=== PATIENT | female | born 1945 | race Caucasian/White ===

== ENCOUNTER 2018-09-16 10:35 | Inpatient (IN) | payer MEDICARE, OTHER ==
[~2018-09-16] VITALS: Ht 167.6 cm; Wt 72.2 kg
--- NOTE | ~2018-09-16 | MORECARE ---
CASE MANAGEMENT DISCHARGE SUMMARY PATIENT: OLIMPIA MISTRY S UNIT: [id number] ADM DATE: 09/16/18 AGE: 73 : 47 SEX: F ROOM/BED: D.1519 AUTHOR: FRANKIE AGUDELO PHYSICIAN: REFERRING PHYSICIAN: EDDIE DURHAM MD DATE OF SERVICE: 09/19/18 Discharge Plan Patient Name: OLIMPIA MISTRY [facility] [facility] 1945 Planned Disposition: Home Anticipated Discharge Date: 09/18/18 Discharge Date: 09/18/2018 Expected LOS: 2 Initial Reviewer: [email or web address] Initial Review Date: 09/19/2018 Generated: 09/19/18 11:05 am Patient Name: OLIMPIA MISTRY Page [id number] at 1005 All edits/amendments must be made on the electronic document DICTATION DATE: 09/19/18 1004 US MARKETING DIRECTOR: KIRSTEN 09/19/18 1004 RPT#: [id number] DC DATE:09/18/18 STATUS: DIS IN [address] [place] [id number] END OF REPORT
[2018-09-16] MEDS ORDERED: ZOFRAN ODT4 MG/UDTAB PO (10:47)
[2018-09-16] MEDS ORDERED: VITAMIN D2000 UNIT PO (10:47)
[2018-09-16] MEDS ORDERED: COZAAR100 MG PO (10:48)
[2018-09-16] MEDS ORDERED: CIPRO500 MG PO (10:48)
[2018-09-16] MEDS ORDERED: PEPCID40 MG PO (10:48)
[2018-09-16] MEDS ORDERED: FLAGYL500 MG PO (10:49)
[2018-09-16 11:22] LABS: BASOPHILS 0.2 % (0-2); EOSINOPHILS 1.8 % (0-7); HEMATOCRIT 39.3 % (36.0-48.0); HEMOGLOBIN 13.3 g/dL (12-16); IMMATURE GRANULOCYTES 0.2 % (0-5); LYMPHOCYTES 29.1 % (15-50); MCH 29.2 pg (26.0-34.0); MCHC 33.8 g/dL (31.0-37.0); MCV 86.2 fL (80.0-100.0); MEAN PLATELET VOLUME 10.3 fL (7.4-10.4); MONOCYTES 7.8 % (2-11); NEUTROPHILS 60.9 % (40-80); PLATELET COUNT 245 10x3/uL (130-400); RBC 4.56 10x6/uL (4.00-5.40); RDW 13.2 % (11.5-14.5); WBC 6.2 10x3/uL (4.8-10.8)
[2018-09-16 11:23] LABS: APPEARANCE CLEAR (CLEAR); BILIRUBIN NEGATIVE (NEGATIVE); COLOR DK YELLOW (YELLOW); GLUCOSE NEGATIVE (NEGATIVE); KETONE NEGATIVE (NEGATIVE); NITRITE NEGATIVE (NEGATIVE); PROTEIN TRACE mg/dL (NEGATIVE); UROBILINOGEN NORMAL (NORMAL)
[2018-09-16 11:30] LABS: BACTERIA FEW /hpf (NONE SEEN); EPITHELIAL CELLS RARE /hpf (0-5); HYALINE CAST RARE /lpf (NONE SEEN); RED CELLS - URINE 0-5 /hpf (0-5); WHITE CELLS - URINE RARE /hpf (0-5)
[2018-09-16 11:46] LABS: ALBUMIN 3.8 g/dL (3.4-5.0); ALKALINE PHOSPHATASE 67 U/L (46-116); ALT (SGPT) 31 U/L (10-68); BILIRUBIN - TOTAL 0.56 mg/dL (0.2-1.3); CALC OSMOLALITY 279 mosm/kg (275-300); CARBON DIOXIDE 25.3 mmol/L (21.0-32.0); CHLORIDE - SERUM 106 mmol/L (98-107); CREATININE - SERUM 0.9 mg/dL (0.6-1.3); GLUCOSE 108 mg/dL (74-106); POTASSIUM - SERUM 3.8 mmol/L (3.5-5.1); PROTEIN - SERUM 7.6 g/dL (6.4-8.2); SODIUM 140 mmol/L (136-145); UREA NITROGEN 13 mg/dL (7-18); eGFR NON AFRICAN AMERICAN 65 mL/min (90-120)
[2018-09-16 11:49] LABS: AMYLASE - SERUM 29 U/L (25-115); LIPASE 184 U/L (73-393)
[2018-09-16 11:51] LABS: TROPONIN-I < 0.017 ng/mL (0.000-0.060)
[2018-09-16 15:14] VITALS: BP 145/75; BMI 27.5
[2018-09-16 18:31] LABS: CKMB 0.6 U/L (0.0-3.6); CREATINE KINASE 68 UL (21-215)
[2018-09-16 18:33] LABS: TROPONIN-I < 0.017 ng/mL (0.000-0.060)
[2018-09-16 19:45] VITALS: BP 160/52
[2018-09-16 23:11] LABS: CKMB 0.9 U/L (0.0-3.6); CREATINE KINASE 85 UL (21-215)
[2018-09-16 23:19] LABS: TROPONIN-I < 0.017 ng/mL (0.000-0.060)
[2018-09-16 23:30] VITALS: BP 143/67
[2018-09-17 03:50] VITALS: BP 127/71
[2018-09-17 06:30] LABS: CKMB 0.9 U/L (0.0-3.6); CREATINE KINASE 87 UL (21-215); TROPONIN-I < 0.017 ng/mL (0.000-0.060)
[2018-09-17 07:50] VITALS: BP 123/61
[2018-09-17 11:09] VITALS: BP 116/66
[2018-09-17 13:07] VITALS: Ht 167.6 cm; Wt 72.2 kg
[2018-09-17 15:11] VITALS: BP 121/63
[2018-09-17 19:45] VITALS: BP 142/75
[2018-09-17 23:50] VITALS: BP 152/75
[2018-09-18 03:45] VITALS: BP 161/77
[2018-09-18 08:13] VITALS: BP 140/79
[2018-09-18] MEDS ORDERED: LEVAQUIN750 MG PO (10:20)
[2018-09-18] MEDS ORDERED: FLAGYL500 MG PO (10:21)
[2018-09-18 11:28] VITALS: BP 140/87
[2018-09-18] MEDS ORDERED: OMEPRAZOLE20 M1 PO (12:27)
[2018-09-18] MEDS ORDERED: COLACE100 MG PO (12:27)
[2018-09-18] MEDS ORDERED: PEPCID40 MG PO (12:27)
[2018-09-18] MEDS ORDERED: MIRALAX17 GM PO (12:27)
[2018-09-18] MEDS ORDERED: LEVSIN/ANASP0.125 MG PO (12:40)
[2018-09-18 16:35] VITALS: BP 138/53
== END 2018-09-18 15:38 | disposition home or self-care (01) | DRG 392 ==
LOC: D.ER 10:35 → D.M2 12:57 → D.EDHOLD 12:57 → D.M2 13:41
PROVIDERS: Emergency Medicine; Internal Medicine Nephrology
DX: K57.32 Diverticulitis of large intestine without perforation or abscess without bleeding (principal); K21.9 Gastro-esophageal reflux disease without esophagitis; I10 Essential (primary) hypertension

== ENCOUNTER 2018-09-23 12:12 | Emergency (ER) | payer MEDICARE, OTHER ==
[~2018-09-23] VITALS: Ht 167.6 cm; Wt 75.0 kg
[~2018-09-23 12:12] MED LIST: CIPRO500 MG PO; COLACE100 MG PO; COZAAR100 MG PO; FLAGYL500 MG PO; LEVAQUIN750 MG PO; LEVSIN/ANASP0.125 MG PO; MIRALAX17 GM PO; OMEPRAZOLE20 M1 PO; PEPCID40 MG PO; VITAMIN D2000 UNIT PO; ZOFRAN ODT4 MG/UDTAB PO
[2018-09-23 12:31] VITALS: Ht 167.6 cm; Wt 75.0 kg
[2018-09-23 13:11] LABS: BASOPHILS 0.2 % (0-2); EOSINOPHILS 0.5 % (0-7); HEMOGLOBIN 14.1 g/dL (12-16); IMMATURE GRANULOCYTES 0.2 % (0-5); MCH 29.3 pg (26.0-34.0); MCHC 34.4 g/dL (31.0-37.0); MCV 85.1 fL (80.0-100.0); MEAN PLATELET VOLUME 10.3 fL (7.4-10.4); MONOCYTES 5.5 % (2-11); NEUTROPHILS 72.6 % (40-80); PLATELET COUNT 296 10x3/uL (130-400); RBC 4.82 10x6/uL (4.00-5.40); RDW 13.4 % (11.5-14.5)
[2018-09-23 13:27] LABS: ALBUMIN 3.8 g/dL (3.4-5.0); ANION GAP 11.9 mmol/L (8-16); BILIRUBIN - TOTAL 0.67 mg/dL (0.2-1.3); CALCIUM 9.5 mg/dL (8.5-10.1); POTASSIUM - SERUM 3.9 mmol/L (3.5-5.1); PROTEIN - SERUM 7.8 g/dL (6.4-8.2)
[2018-09-23 14:06] LABS: APPEARANCE CLEAR (CLEAR); BILIRUBIN NEGATIVE (NEGATIVE); COLOR DK YELLOW (YELLOW); EPITHELIAL CELLS 0-5 /hpf (0-5); GLUCOSE NEGATIVE (NEGATIVE); KETONE NEGATIVE (NEGATIVE); NITRITE NEGATIVE (NEGATIVE); PROTEIN NEGATIVE (NEGATIVE); RED CELLS - URINE 0-5 /hpf (0-5); UROBILINOGEN NORMAL (NORMAL); WHITE CELLS - URINE 0-5 /hpf (0-5)
[2018-09-23 16:20] VITALS: BP 143/81
== END 2018-09-23 16:20 | disposition home or self-care (01) ==
LOC: D.ER 12:12
PROVIDERS: Family Medicine
DX: K29.70 Gastritis, unspecified, without bleeding (principal); R11.0 Nausea; K21.9 Gastro-esophageal reflux disease without esophagitis